=== PATIENT | male | born 1960 | race Caucasian/White ===

== ENCOUNTER → 2020-03-25 | Outpatient (CLI) | payer OTHER | END | disposition home or self-care (01) | LOC: LABWHC1 14:06 | PROVIDERS: ATTEND Emergency Medicine | DX: Z20.828 Contact with and (suspected) exposure to other viral communicable diseases (principal) | CPT/HCPCS: U0003; C9803 ==

== ENCOUNTER → 2021-01-06 | Outpatient (CLI) | payer BC ==
--- NOTE | 2021-01-06 17:43 | NM ---
EXAMINATION TYPE: NM bone scan whole body DATE OF EXAM: 01/06/2021 COMPARISON: CT 01/06/2021 HISTORY: Prostate cancer Delayed whole-body scanning was performed following the injection of 24 mCi Tc 99m MDP. Images acqui red 4 hours post injection. FINDINGS: Soft tissue uptake is within normal limits. Uptake within the feet, wrists, elbows, shoulders and breanna rnoclavicular joints is likely degenerative. No definite focal uptake to suggest metastatic disease. Uptake in the maxilla and mandible is likely due to periodontal disease. Uptake in the cervical spine is likely due to facet arthropathy, degenerative change. IMPRESSION: No evident metastatic disease.
--- NOTE | 2021-01-06 18:52 | CT ---
EXAMINATION TYPE: CT abdomen pelvis w con DATE OF EXAM: 01/06/2021 COMPARISON: None INDICATION: Prostate cancer DLP: 7-0.9 mGycm, Automated exposure control for dose reduction was used. CONTRAST: 100 mL of Isovue 300. Study performed with Oral Contrast TECHNIQUE: Axial images were obtained from above the diaphragm to the pubic rami in the axial plane a t 5 mm thick sections. Reconstructed images are reviewed on the computer in the coronal plane. FINDINGS: Limited CT sections are obtained the lung bases. The lung bases are clear. CT ABDOMEN: Liver: Normal Spleen: Normal Pancreas: Normal Adrenal glands: Right adrenal gland has minimal thickening measuring 1.1 cm. Gallbladder: Normal Kidneys: No masses are evident. No hydronephrosis is present. No cysts are present. Delayed images were obtained through the kidneys, which remain unremarkable. Aorta: Vascular calcification is within the aorta. Inferior vena cava: Normal. CT PELVIS: Loops of bowel within the abdomen and pelvis are normal. There fluid-filled distal small bowel lo ops. Correlate for ileus. No obstruction is evident. Oral contrast extends to the proximal: Appendix: Not visualized. No dilated tubular structure or inflammatory change is evident. Urinary bladder: Decompressed with limited evaluation Genitourinary structures: Patient's known prostate cancer is not identified. Osseous structures: No suspicious lytic or sclerotic lesions. Tiny bone island may be within the L4 r ight vertebral body. Metastatic lesion is considered less likely. IMPRESSIONS: 1. Fluid-filled prominent loops of distal ileum with some fluid in the ascending colon. Correlate fo r ileus. Gastroenteritis could be considered. 2. Suspicious changes to suggest metastasis are not evident.
== END | disposition home or self-care (01) ==
LOC: RADNMMAIN 10:29
PROVIDERS: ATTEND Urology
DX: C61 Malignant neoplasm of prostate (principal)
CPT/HCPCS: 74177; 78306; A9503; Q9967

== ENCOUNTER → 2021-01-21 | Outpatient (CLI) | payer BC ==
[2021-01-21 15:19] LABS: Basophils # (A) 0.1 k/uL (0-0.2); Basophils % (A) 1 %; Eosinophils # (A) 0.2 k/uL (0-0.7); Eosinophils % (A) 3 %; HCT 51.4 % (39.0-53.0); HGB 17.4 gm/dL (13.0-17.5); Lymphocytes # (A) 1.6 k/uL (1.0-4.8); Lymphocytes % (A) 24 %; MCH 34.4 pg (25.0-35.0); MCHC 33.9 g/dL (31.0-37.0); MCV 101.4 fL (80.0-100.0); Mean Platelet Volume 8.3; Monocytes # (A) 0.5 k/uL (0-1.0); Monocytes % (A) 7 %; Neutrophils # (A) 4.1 k/uL (1.3-7.7); Neutrophils % (A) 62 %; Platelet Count 216 k/uL (150-450); RBC 5.07 m/uL (4.30-5.90); RDW 12.9 % (11.5-15.5); WBC 6.6 k/uL (3.8-10.6)
[2021-01-21 15:23] LABS: Appearance,Urine Clear (Clear); Bilirubin,Urine Negative (Negative); Blood,Urine Negative (Negative); Color,Urine Yellow; Glucose,Urine (UA) Negative (Negative); Ketones,Urine Negative (Negative); Leukocyte Esterase,Urine Negative (Negative); Nitrite,Urine Negative (Negative); PH, Urine 5.5 (5.0-8.0); Protein,Urine Negative (Negative); Specific Gravity,Urine 1.018 (1.001-1.035); Urobilinogen,Urine <2.0 mg/dL (<2.0)
[2021-01-21 15:35] LABS: African American GFR (CKD) >90 (>60 ml/min/1.73 sqM); Anion Gap 7 mmol/L; Blood Urea Nitrogen 17 mg/dL (9-20); Calcium 9.6 mg/dL (8.4-10.2); Carbon Dioxide 23 mmol/L (22-30); Chloride 105 mmol/L (98-107); Glucose 93 mg/dL (74-99); Non-African American GFR(CKD) 87 (>60 ml/min/1.73 sqM); Potassium 4.2 mmol/L (3.5-5.1); Sodium 135 mmol/L (137-145)
--- NOTE | 2021-01-21 15:50 | XR ---
EXAMINATION TYPE: XR chest 2V DATE OF EXAM: 01/21/2021 COMPARISON: NONE HISTORY: C61,Z01.818 TECHNIQUE: Frontal and lateral views of the chest are obtained. FINDINGS: There is no focal air space opacity, pleural effusion, or pneumothorax seen. The cardiac silhouette size is within normal limits. Prominent lung volume and a be indicative of underlying COPD . Rib deformities noted on the right at the fourth rib laterally likely due to old trauma which is he aled. The osseous structures are intact. IMPRESSION: No acute cardiopulmonary process.
== END | disposition home or self-care (01) ==
LOC: LABPAT 14:05
PROVIDERS: ATTEND Urology
DX: Z01.812 Encounter for preprocedural laboratory examination (principal); C61 Malignant neoplasm of prostate; R35.0 Frequency of micturition
CPT/HCPCS: 36415; 71046; 80048; 81003; 85025; 87086

== ENCOUNTER 2021-01-28 10:27 | Observation (INO) | payer BC ==
--- NOTE | 2021-01-22 18:17 | P.HPIHPCON ---
History of Present Illness H&P Date: 01/22/21 Chief Complaint: Prostate cancer This is a 59-year-old male with history of [place] 7 (3+4) prostate cancer. He underwent a CT scan and bone scan which showed no evidence of metastatic disease. Options of robotic prostatectomy, and radiation were discussed with him in detail. Discussed with him the risk and the benefit of each approach. He agreed to proceed with a robotic-assisted laparoscopic radical prostatectomy with pelvic lymph node dissection. Discussed with him the risk which includes but not limited to bleeding, infection, injury to nearby organs, which includes bladder, rectum, ureter, blood vessels and nerves. Discussed also with him risk from anesthesia which includes but not limited to heart attack, stroke, blood clots and even loss of life. He understood all the risk and agreed to proceed with robotic-assisted laparoscopic prostatectomy with pelvic lymph node dissection Consent for Procedure: I have explained the operation/procedure to the patient, including the risks, benefits, side effects, alternative therapies (including not receiving the proposed treatment or service), the likelihood of the patient achieving his/her goals, and potential recuperation problems for the procedure/sedation/analgesia, as well as any blood products, if indicated. I also explained to the patient the risks, benefits and side effects of the alternatives, as well as the risks related to not receiving the proposed procedure, care, treatment, or services. Past Medical History Past Medical History: No Reported History History of Any Multi-Drug Resistant Organisms: None Reported Past Surgical History: No Surgical Hx Reported Past Psychological History: No Psychological Hx Reported Past Alcohol Use History: Occasional Past Drug Use History: Marijuana Medications and Allergies Home Medications Medication Instructions Recorded Confirmed Type No Known Home Medications 07/19/14 07/19/14 History Allergies Allergy/AdvReac Type Severity Reaction Status Date / Time No Known Allergies Allergy Verified 07/19/14 20:28 Surgical - Exam - General well developed, well nourished, no distress - Eyes normal ocular movement, no icteric - ENT no hearing loss, no congestion - Respiratory normal expansion, normal respiratory effort - Abdomen Abdomen: soft, non tender - Psychiatric oriented to time, oriented to person, oriented to place Assessment and Plan Assessment: 61-year-old male with history of [place] 7 prostate cancer OR for robotic prostatectomy with pelvic lymph node dissection
[2021-01-26 14:22] VITALS: BMI 25.0
[~2021-01-28 10:27] MED LIST: DEXAMETHASONE SOD PHOSPHATE 4 MG/ML 1 ML VIAL IV ONE; HEPARIN SODIUM,PORCINE/PF 5,000 UNIT/0.5 ML SYRINGE SQ PRN; LIDOCAINE 1% (10MG/ML) FOR IV START INTRADERMA PRN; ONDANSETRON 4 MG/2 ML VIAL IVP ONE; SCOPOLAMINE 1.5MG/72HR PATCH TRANSDERM ONE
[2021-01-28] MEDS: LACTATED RINGERS 1,000 ML IV SCH (11:06)
[2021-01-28] MEDS ORDERED: fentaNYL (PF) 50 MCG/ML 2 ML AMP IVP ONE (11:15)
[2021-01-28] MEDS ORDERED: MIDAZOLAM 2 MG/2 ML VIAL IVP ONE (11:15)
--- NOTE | 2021-01-28 11:35 | P.ANPRN ---
Procedure Note - Anesthesia - Nerve Block Performed Bilateral Erector Spinae Single Time Out Performed: Yes (1114) Date of Procedure: 01/28/21 Procedure Start Time: 11:14 Procedure Stop Time: :22 Location of Patient: PreOp Indication: Acute Post-Operative Pain, Dx/Pain Location (bilateral abdominal pain), Requested by Surgeon Sedation Type: Sedate with meaningful contact maintained Preparation: Sterile Prep Position: Supine Catheter: None Needle Types: Pajunk Needle Gauge: 21 Ultrasound used to visualize needle placement: Yes Ultrasound used to observe medication spread: Yes Injectate: 0.5% Ropivacaine (see comment for volume) Blood Aspirated: No Pain Paresthesia on Injection Noted: No Resistance on Injection: Normal Image Stored and Saved: Yes Events: Uneventful and Well Tolerated
[2021-01-28] MEDS ORDERED: MIDAZOLAM 2 MG/2 ML VIAL ONE (12:27)
[2021-01-28] MEDS ORDERED: fentaNYL (PF) 50 MCG/ML 2 ML AMP ONE (12:27)
[2021-01-28] MEDS ORDERED: SODIUM CHLORIDE 0.9% (PF) 10 ML VIAL ONE (12:27)
[2021-01-28] MEDS ORDERED: SUCCINYLCHOLINE CHLORIDE 100 MG/5 ML SYR IV ONE (12:27)
[2021-01-28] MEDS ORDERED: NEOSTIGMINE 1 MG/ML 10 ML VIAL ONE (12:27)
[2021-01-28] MEDS ORDERED: LIDOCAINE 1% INJ 10MG/ML (20 ML MDV) ONE (12:27)
[2021-01-28] MEDS ORDERED: GLYCOPYRROLATE 0.2 MG/ML 2 ML VIAL ONE (12:27)
[2021-01-28] MEDS ORDERED: ROPIVACAINE 5 MG/ML 30 ML VIAL ONE (12:27)
[2021-01-28] MEDS ORDERED: PROPOFOL 10 MG/ML 20 ML VIAL IV ONE (12:27)
[2021-01-28] MEDS ORDERED: ROCURONIUM 10 MG/ML (5 ML VIAL) IV ONE (12:27)
[2021-01-28] MEDS ORDERED: HYDROmorphone (PF) 1 MG/ML ONE (12:27)
[2021-01-28] MEDS ORDERED: PHENYLEPHRINE-0.9% NACL SYG 1,000 MCG/10 ML SYRINGE ONE (12:27)
[2021-01-28] MEDS ORDERED: ONDANSETRON 4 MG/2 ML VIAL IVP PRN (12:40)
[2021-01-28] MEDS ORDERED: BUPIVACAINE (PF) 0.5% 30 ML VIAL SQ ONE ×2 (16:25→16:39)
--- NOTE | 2021-01-28 16:50 | P.OP ---
Date of Procedure: 01/28/21 Preoperative Diagnosis: Prostate cancer Postoperative Diagnosis: Same Procedure(s) Performed: Robotic-assisted laparoscopic radical prostatectomy, and pelvic lymph node dissection Implants: None Anesthesia: TAMERA Surgeon: Dom Krishnan Estimated Blood Loss (ml): 100 Pathology: other (prostate, bilateral seminal vesicle, bilateral pelvic lymph nodes) Condition: stable Disposition: PACU Indications for Procedure: This is a 61-year-old male with history of [place] 7 (3+4) prostate cancer. He underwent a CT scan and bone scan which showed no evidence of metastatic disease. Options of robotic prostatectomy, and radiation were discussed with him in detail. Discussed with him the risk and the benefit of each approach. He agreed to proceed with a robotic-assisted laparoscopic radical prostatectomy with pelvic lymph node dissection. Discussed with him the risk which includes but not limited to bleeding, infection, injury to nearby organs, which includes bladder, rectum, ureter, blood vessels and nerves. Discussed also with him risk from anesthesia which includes but not limited to heart attack, stroke, blood clots and even loss of life. He understood all the risk and agreed to proceed with robotic-assisted laparoscopic prostatectomy with pelvic lymph node dissection Operative Findings: uncomplicated robotic prostatectomy Description of Procedure: After preoperative antibiotics were started, the patient was taken to the operating room. Anesthesia was induced and the patient was placed in a supine position, with adequate padding of the pressure points, shoulders, back, legs and arms. He was then prepped and draped in the standard fashion. A critical pause was performed using two patient identifiers. A 16F nichole catheter was placed to gravity drainage. A pneumo-peritoneum was created with placement of a Veress needle to 20 mm Hg without complication, and a 8 Fr trocar was placed above the umbillicus. Under direct vision a 8mm robotic ports was placed lateral to each rectus slightly below the camera port. The left iliac fossa 8mm port was placed. The right project administrative assistant right iliac fossa 12mm port and right paramedian 5mm portwere placed. After the patient was placed in the trendelenberg position, the robot was then docked to the 8mm robotic ports and then each robotic arm and tower was checked in relation to the patient's legs and hands to avoid inadvertent compression. The peritoneal cavity was inspected. An inverted U-shaped incision began laterally to the left medial umbilical ligament and extended high across the midline to the right umbilical ligament. The limbs of the "U" extended to the level of the vasa on both sides. We next developed the preperitoneal space and the space of Retzius. Mesh was visualized along the left side, this was mobilized laterally away from the bladder Cautery was used to dissected the bladder away from the prostate. After the anterior bladder neck was incised and the bladder entered the the posterior bladder neck was exposed and the ureteral orifces identified. The posterior bladder neck was then incised and dissected away from the prostate. The vas and the seminal vesicles were now exposed and dissected to their insertions into the prostate and were not spared. The posterior layer of the Denonvillier's fascia was incised to enter dinora the plane between prostate and perirectal fat. Each lateral pedicle was controlled with clips and cautery for hemostasis. no nerve preservation was performed on the left, complete nerve preservation was performed on the right The puboprostatic ligament was incised where it inserted into the apex of the prostate and a plane between urethra and dorsal venous complex developed to expose the anterior urethral surface. The anterior wall of the urethra was transected with the cut setting a few millimeters distal to the apex of the prostate. The dorsal vein was ligated using 3-0 V lock bilateral obturator and external iliac lymph node packets were carefully dissected after careful visualization of the hypogastric artery and obturator nerve. There was careful attention paid to hemostasis with judicious use of cautery. The urethrovesical anastomosis was performed . the posterior denovillers was reapproximated using 3-0 V lock. A 6 and 6 inch 3-0 V-Lock suture was used to anastomose the urethra and bladder, starting at the 6:00 posterior position. Mucosa was secured in every stitch, to ensure a mucosa to mucosa anastomosis. The stitch was regularly cinched and the anastomosis tightened. Care was taken to not violate the ureteral orifices. The Nichole catheter was advanced, the bladder filled, and the anastomosis was tested, as described above. Anastomsis was watertight at 150mL The periumbilical fascia was closed with 1-0-PDS sutures in [id number] fashion. All ports were closed with a subcuticular 4-0 monocryl and Dermabond. Sponge, instrument, and needle counts were correct at the end of the case x2. All specimens including prostate and lymph nodes were sent to pathology for diagnosis and will be available in a week. The patient tolerated the surgery well and without complication. He awoke without difficulty and was taken to the recovery room in stable condition
[2021-01-28] MEDS: HYDROmorphone 0.5 MG/0.5 ML SYRINGE IVP PRN ×3 (16:51→17:35)
[2021-01-28] MEDS: KETOROLAC 15 MG/ML 1 ML VIAL IVP SCH (17:37)
[2021-01-28] MEDS: D5-0.45% NACL WITH KCL 20MEQ/L 1,000 ML IV SCH ×2 (19:45→21:32)
[2021-01-28] MEDS: HEPARIN SODIUM,PORCINE/PF 5,000 UNIT/0.5 ML SYRINGE SQ SCH (21:31)
[2021-01-28] MEDS: HYDROcodone/APAP 5-325MG 1 EACH TAB PO PRN (21:42)
[2021-01-29] MEDS: KETOROLAC 15 MG/ML 1 ML VIAL IVP SCH ×4 (01:01→18:32)
[2021-01-29] MEDS: HYDROcodone/APAP 5-325MG 1 EACH TAB PO PRN ×2 (02:10→12:10)
[2021-01-29] MEDS ORDERED: SODIUM CHLORIDE 0.9% 500 ML 500 ML IV ONE ×2 (03:17→11:55)
[2021-01-29 05:04] LABS: HCT 42.4 % (39.0-53.0); MCHC 32.6 g/dL (31.0-37.0); MCV 104.3 fL (80.0-100.0); Macrocytosis Slight; Mean Platelet Volume 8.4; Platelet Count 221 k/uL (150-450); RBC 4.06 m/uL (4.30-5.90); WBC 9.2 k/uL (3.8-10.6)
[2021-01-29 05:16] LABS: HGB 13.8 gm/dL (13.0-17.5)
[2021-01-29] MEDS: D5-0.45% NACL WITH KCL 20MEQ/L 1,000 ML IV SCH ×3 (05:46→22:33)
[2021-01-29] MEDS: HEPARIN SODIUM,PORCINE/PF 5,000 UNIT/0.5 ML SYRINGE SQ SCH ×3 (05:47→20:31)
[2021-01-29] MEDS: LACTATED RINGERS 1,000 ML IV SCH (09:51)
--- NOTE | 2021-01-29 17:30 | P.PN ---
Progress Note - Text Progress Note Date: 01/29/21 POD #1 S/P robotic prostatectomy. He had an episode of hypotension last night, responding appropriately to 500 him a bolus. This a.m. he denies any dizziness or lightheadedness, still having some incisional pain. Martinez is draining blood- tinged urine, urine is fairly concentrated. Abdomen: Soft, appropriately tender, mild distention Incision clean and dry and intact, some bruising along the midline incision -We'll give another 500 mL bolus -We'll keep in the hospital for today, plan on discharging him tomorrow
[2021-01-29] MEDS ORDERED: ZOLPIDEM 5 MG TAB PO PRN (21:18)
[2021-01-30] MEDS: KETOROLAC 15 MG/ML 1 ML VIAL IVP SCH ×2 (00:20→06:39)
[2021-01-30] MEDS: HEPARIN SODIUM,PORCINE/PF 5,000 UNIT/0.5 ML SYRINGE SQ SCH (05:48)
[2021-01-30] MEDS: LACTATED RINGERS 1,000 ML IV SCH (06:39)
[2021-01-30] MEDS: D5-0.45% NACL WITH KCL 20MEQ/L 1,000 ML IV SCH (06:39)
[2021-01-30 08:08] VITALS: BP 119/66; PULSE 101; RESP 18; TEMP 98.4
--- NOTE | 2021-01-30 08:58 | P.DS ---
Providers Date of admission: 01/29/21 06:13 Expected date of discharge: 01/30/21 Attending physician: Dom Krishnan MD Primary care physician: Brandon Gruber [facility] Course: On the day of admission, the patient underwent non-Acute robotic-assisted laparoscopic prostatectomy with bilateral pelvic lymphadenectomy. On the first postoperative night, he had an episode of hypotension and responded to a fluid bolus. On the first postoperative day, he reported a feeling of bloating. This was improved on the second postoperative day. At that time, he denied nausea and was tolerating diet. He had no complaints at that time. He was ambulating within his room and was encouraged to ambulate in the gold. Procedures: Robotic-assisted laparoscopic prostatectomy (RALP) with bilateral pelvic lymphadenectomy in 01/28/2021 Patient Condition at Discharge: Good Plan - Discharge Summary Discharge Rx Participant: No New Discharge Prescriptions: New Ciprofloxacin HCl [Cipro] 250 mg PO Q12HR #6 tablet Ketorolac [Toradol] 10 mg PO Q6HR PRN #12 tab PRN Reason: Mild To Moderate Pain HYDROcodone/APAP 5-325MG [[place] 5-325] 1 tab PO Q4HR PRN #6 tab PRN Reason: Severe Breakthrough Pain Discharge Medication List Ciprofloxacin HCl [Cipro] 250 mg PO Q12HR #6 tablet 01/30/21 [Rx] HYDROcodone/APAP 5-325MG [[place] 5-325] 1 tab PO Q4HR PRN #6 tab 01/30/21 [Rx] Ketorolac [Toradol] 10 mg PO Q6HR PRN #12 tab 01/30/21 [Rx] Follow up Appointment(s)/Referral(s): Brandon Gruber III, MD [Primary Care Provider] - 02/04/21 10:30 am Dom Krishnan MD [STAFF PHYSICIAN] - 02/10/21 3:00 pm Activity/Diet/Wound Care/Special Instructions: Discharge home with Martinez catheter. Instruct patient to use overnight drainage bag as well as urinary leg bag. Okay to shower. Diet as tolerated. No lifting, driving, or strenuous activity. Reassure patient that abdominal wall ecchymosis and penoscrotal swelling are normal. Instruct patient to begin taking antibiotics one day prior to Martinez catheter removal. Discharge Disposition: HOME SELF-CARE
== END 2021-01-30 10:52 | disposition home or self-care (01) ==
LOC: OR 10:27 → 4SSUR 16:51 → OR 01-29 06:13
PROVIDERS: ADMIT Urology; ATTEND Urology
DX: C61 Malignant neoplasm of prostate (principal); I95.9 Hypotension, unspecified; F17.210 Nicotine dependence, cigarettes, uncomplicated
CPT/HCPCS: 38571; 55866; S2900; 64999; 85027; 86850; 86900; 86901; 88307; 88309; 96360; 96361

== ENCOUNTER → 2022-01-29 | Outpatient (CLI) | payer BC ==
--- NOTE | 2022-01-29 15:50 | NM ---
EXAMINATION TYPE: NM bone scan whole body DATE OF EXAM: 01/29/2022 COMPARISON: 01/06/2021 HISTORY: Prostate cancer Delayed whole-body scanning was performed following the injection of 23.6 mCi Tc 99m MDP. Images acq uired 3 hours post injection. FINDINGS: Stable uptake involving the sternoclavicular joints, feet, and shoulders in a pattern most typical of arthritic change. Mild intensity uptake involving the thoracic spine appears stable likely degenerative. No suspicious uptake seen to suggest metastases. Uptake involving the maxilla and mandible likely related to periodontal disease. Faint uptake in the region of the lower cervical spine stable likely degenerative. IMPRESSION: 1. No diagnostic evidence of metastases.
== END | disposition home or self-care (01) ==
LOC: RADNMMAIN 10:23
PROVIDERS: ATTEND Urology
DX: C61 Malignant neoplasm of prostate (principal)
CPT/HCPCS: 78306; A9503

== ENCOUNTER → 2023-05-09 | Outpatient (CLI) | payer BC ==
--- NOTE | 2023-05-09 11:38 | US ---
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 Indirect Doppler criteria was utilized. FINDINGS: EXAM MEASUREMENTS: RIGHT: Peak Systolic Velocity (PSV) cm/sec ----- Right CCA: 92 ----- Right ICA: 142 ----- Right ECA: 81 ICA/CCA ratio: 1.5 RIGHT: End Diastole cm/sec ----- Right CCA: 24 ----- Right ICA: 33 ----- Right ECA: 24 LEFT: Peak Systolic Velocity (PSV) cm/sec ----- Left CCA: 97 ----- Left ICA: 85 ----- Left ECA: 111 ICA/CCA ratio: 0.9 LEFT: End Diastole cm/sec ----- Left CCA: 31 ----- Left ICA: 41 ----- Left ECA: 24 VERTEBRALS (direction of flow): Right Vertebral: Antegrade Left Vertebral: Antegrade Rhythm: Normal REMOTE INPATIENT CODER NOTES: No intimal thickening or plaque noted, elevated velocities within the right ICA. Incidental - bilateral thyroid nodules IMPRESSION: Mildly elevated peak systolic velocity within the proximal right ICA. However, the ICA/CCA ratio and end-diastolic velocity are not abnormally elevated. Findings may be on the basis of some turbulent fl ow. Criteria for Assigning % of Stenosis / Diameter reduction (Estimation based on the indirect measurements of the internal carotid artery velocities (ICA PSV). 1. Normal (no stenosis)=ICA PSV < 125 cm/s: ratio < 2.0: ICA EDV<40 cm/s. 2. Less than 50% stenosis=ICA PSV < 125 cm/s: ratio < 2.0: ICA EDV<40 cm/s. 3. 50 to 69% stenosis=ICA PSV of 125 to 230 cm/s: ration 2.0 ? 4.0: ICA EDV 40-100 cm/s. 4. Greater than 70% stenosis to near occlusion= ICA PSV > 230 cm/s: ratio > 4.0: ICA EDV > 100 cm/s. 5. Near occlusion= ICA PSV velocities may be low or undetectable: variable ratio and ICA EDV. 6. Total occlusion=unable to detect flow.
== END | disposition home or self-care (01) ==
LOC: RADUSWWP 10:57
PROVIDERS: ATTEND Family Medicine
DX: H34.8320 Tributary (branch) retinal vein occlusion, left eye, with macular edema (principal); I10 Essential (primary) hypertension
CPT/HCPCS: 93880

== ENCOUNTER → 2023-05-25 | Outpatient (CLI) | payer BC ==
[2023-05-25 15:27] LABS: Prostate Specific Antigen <0.01 ng/mL (0.000-4.500)
== END | disposition home or self-care (01) ==
LOC: LABWHC1 11:16
PROVIDERS: ATTEND Radiology Radiation Oncology
DX: C61 Malignant neoplasm of prostate (principal); Z90.79 Acquired absence of other genital organ(s)
CPT/HCPCS: 36415; 84153; 84403

== ENCOUNTER → 2024-03-16 | Outpatient (CLI) | payer BC | END | disposition home or self-care (01) | LOC: LABWHC1 12:27 | PROVIDERS: ATTEND Urology | DX: C61 Malignant neoplasm of prostate (principal) | CPT/HCPCS: 36415; 84153 ==